=== PATIENT | male | born 1935 | race Caucasian/White ===

== ENCOUNTER 2018-07-09 19:36 | Inpatient (IN) | payer OTHER ==
[~2018-07-09] VITALS: Ht 165.1 cm; Wt 65.2 kg
[~2018-07-09 19:36] MED LIST: ATOR80TA; CLOP75TA28; FLU05NSL; METF-370; METO-169; RAMI2.5C33; [UNRECOGNIZED DRUG - CODE]
[2018-07-09] MEDS ORDERED: SODIUM CHLORIDE 0.9% 1,000 ML IVB ONE (20:33)
[2018-07-09 21:11] LABS: Basophils # (auto) 0 uL; Basophils % (auto) 0.1 % (0.0-2.0); Eosinophils # (auto) 0 uL; Hemoglobin 11.6 g/dL (13.5-17.5); Lymphocytes # (auto) 0.4 uL; Lymphocytes % (auto) 3.4 % (10.0-50.0); Mean Corpuscular Hemoglobin 29.3 pg (28.0-32.0); Mean Corpuscular Hgb Conc. 31.5 g/dL (32.0-36.0); Mean Corpuscular Volume 93.2 fL (80.0-100.0); Monocytes # (auto) 0.8 uL; Monocytes % (auto) 6.9 % (0.0-12.0); Neutrophils # (auto) 10.9 uL; Neutrophils % (auto) 89.6 % (37.0-80.0); Platelet Count (auto) 187 10^3/uL (140-450); Red Blood Cells 3.97 10^6/uL (4.5-5.90); Red Cell Distribution Width 16.4 % (11.8-14.3); White Blood Cell 12.2 10^3/uL (4.4-10.8)
[2018-07-09 21:26] LABS: INR 1.03 (0.9-1.15); Partial Thromboplastin Time 24.4 sec (23.78-33.04)
[2018-07-09 21:31] LABS: Albumin 3.4 g/dL (3.4-5.0); Anion Gap 9 (5-15); Blood Urea Nitrogen 15 mg/dL (7-18); Carbon Dioxide 24 mmol/L (21-32); Chloride 105 mmol/L (98-107); Glucose 218 mg/dL (74-106); Magnesium 1.9 mg/dL (1.6-2.6); Potassium 3.7 mmol/L (3.5-5.1); Sodium 138 mmol/L (136-145)
[2018-07-09 21:34] LABS: Alanine Aminotransferase 10 U/L (16-61); Alkaline Phosphatase 70 U/L (45-117); Aspartate Aminotransferase 10 U/L (15-37); Bilirubin, Total 0.8 mg/dL (0.2-1.0); GFR African American 71 mL/min; GFR Non-African American 58 mL/min; Total Protein 7.5 g/dL (6.4-8.2)
[2018-07-09 22:38] LABS: Urine Bacteria NONE SEEN /hpf (None Seen); Urine Blood 1+ /uL (Negative); Urine Hyaline Cast FEW /lpf (0 - 2); Urine Mucus FEW (None Seen); Urine Specific Gravity 1.022 (1.001-1.035); Urine WBC 3 /hpf (0 - 3)
[2018-07-10] MEDS ORDERED: ONDANSETRON HCL 4 MG/2 ML VIAL IV PRN (02:00)
[2018-07-10] MEDS ORDERED: DEXTROSE (50%) 50ML SYRG IV PRN (02:00)
[2018-07-10 05:27] VITALS: BP 160/71
[2018-07-10] MEDS: ACCU-CHEK COMFORT CURVE STRIP VI SCH ×4 (06:32→23:44)
[2018-07-10] MEDS: InsuLIN REG 1unit/0.01ml Soln (100units/ml) SC SCH ×4 (06:34→23:53)
[2018-07-10] MEDS ORDERED: LEVOFLOXACIN 500MG 100 ML IV ONE (08:00)
[2018-07-10 09:00] VITALS: BP 127/58
[2018-07-10 10:28] LABS: Albumin 3.1 g/dL (3.4-5.0); Calcium 8.8 mg/dL (8.5-10.1); Potassium 3.5 mmol/L (3.5-5.1)
[2018-07-10 10:31] LABS: BUN/Creatinine Ratio 15.4; Bilirubin, Total 0.7 mg/dL (0.2-1.0); Total Protein 6.9 g/dL (6.4-8.2)
[2018-07-10 10:40] LABS: Basophils # (auto) 0 uL; Basophils % (auto) 0.1 % (0.0-2.0); Eosinophils # (auto) 0 uL; Hematocrit 34.5 % (41.0-53.0); Hemoglobin 11.1 g/dL (13.5-17.5); Lymphocytes # (auto) 0.6 uL; Lymphocytes % (auto) 6.7 % (10.0-50.0); Mean Corpuscular Hemoglobin 29.3 pg (28.0-32.0); Mean Corpuscular Hgb Conc. 32.2 g/dL (32.0-36.0); Monocytes # (auto) 0.8 uL; Monocytes % (auto) 8.9 % (0.0-12.0); Neutrophils # (auto) 7.2 uL; Neutrophils % (auto) 84.3 % (37.0-80.0); Platelet Count (auto) 199 10^3/uL (140-450); Red Blood Cells 3.79 10^6/uL (4.5-5.90); Red Cell Distribution Width 15.9 % (11.8-14.3); White Blood Cell 8.5 10^3/uL (4.4-10.8)
[2018-07-10] MEDS: CLOPIDOGREL BISULFATE 75 MG TAB PO SCH (10:51)
[2018-07-10 16:57] VITALS: BP 148/67
[2018-07-10] MEDS: ACETAMINOPHEN 500 MG TAB PO PRN (18:23)
[2018-07-10 22:08] VITALS: BP 144/52
[2018-07-10] MEDS: ATORVASTATIN 20 MG TAB PO SCH (23:40)
[2018-07-11 04:54] VITALS: BP 150/60
[2018-07-11] MEDS: ACCU-CHEK COMFORT CURVE STRIP VI SCH ×3 (06:37→17:49)
[2018-07-11] MEDS: InsuLIN REG 1unit/0.01ml Soln (100units/ml) SC SCH ×4 (06:37→22:00)
[2018-07-11 09:17] VITALS: BP 146/72
[2018-07-11] MEDS ORDERED: LEVOFLOXACIN 250MG 50 ML IV SCH (10:00)
[2018-07-11] MEDS: CLOPIDOGREL BISULFATE 75 MG TAB PO SCH (10:38)
[2018-07-11] MEDS: LEVOFLOXACIN 250 MG TAB PO SCH (10:38)
[2018-07-11 13:00] VITALS: BP 128/72
[2018-07-11] MEDS: ACETAMINOPHEN 500 MG TAB PO PRN (16:57)
[2018-07-11 17:33] VITALS: BP 127/57
[2018-07-11 21:39] VITALS: BP 125/60
[2018-07-12] MEDS: ATORVASTATIN 20 MG TAB PO SCH (00:13)
[2018-07-12] MEDS: ACCU-CHEK COMFORT CURVE STRIP VI SCH ×3 (00:18→11:30)
[2018-07-12 05:07] VITALS: BP 133/74
[2018-07-12] MEDS: InsuLIN REG 1unit/0.01ml Soln (100units/ml) SC SCH ×2 (06:46→11:30)
[2018-07-12 09:00] VITALS: BP 129/71
[2018-07-12] MEDS: CLOPIDOGREL BISULFATE 75 MG TAB PO SCH (10:36)
[2018-07-12] MEDS: LEVOFLOXACIN 250 MG TAB PO SCH (10:36)
== END 2018-07-12 11:37 | disposition hospice, home (50) | DRG 64 ==
LOC: EDBD 19:36 → ER 19:44 → TELE 07-10 02:08 → TELE-CENTR 07-10 04:38
PROVIDERS: ADMIT Nurse Practitioner Family; ATTEND Internal Medicine
DX: I63.9 Cerebral infarction, unspecified (principal); G93.41 Metabolic encephalopathy; G81.94 Hemiplegia, unspecified affecting left nondominant side; R00.1 Bradycardia, unspecified; D64.9 Anemia, unspecified; I10 Essential (primary) hypertension; D72.829 Elevated white blood cell count, unspecified; I70.0 Atherosclerosis of aorta; E78.5 Hyperlipidemia, unspecified; F03.90 Unspecified dementia, unspecified severity, without behavioral disturbance, psychotic disturbance, mood disturbance, and anxiety; R00.0 Tachycardia, unspecified; M85.80 Other specified disorders of bone density and structure, unspecified site; R55 Syncope and collapse; E11.9 Type 2 diabetes mellitus without complications; I25.10 Atherosclerotic heart disease of native coronary artery without angina pectoris; Z95.1 Presence of aortocoronary bypass graft; Z79.02 Long term (current) use of antithrombotics/antiplatelets; Z79.899 Other long term (current) drug therapy; Z88.5 Allergy status to narcotic agent; Z88.1 Allergy status to other antibiotic agents
CPT/HCPCS: 36415; 70450; 71045; 72125; 80053; 81001; 82962; 83605; 83735; 83880; 84443; 84484; 85025; 85610; 85730; 87040; 87086; 92610; 94761; 96361; 96365; G0378; J1815; J1956